=== PATIENT | male | born 1970 | race Caucasian/White ===

== ENCOUNTER 2020-07-29 19:50 | Inpatient (IN) | payer MEDICAID ==
[~2020-07-29] VITALS: Ht 182.9 cm; Wt 60.0 kg
[2020-07-29 21:11] LABS: BASOPHILS % (AUTO) 0.4 % (0-1); EOSINOPHILS # (AUTO) 0.1 X10'3 (0-0.9); EOSINOPHILS % (AUTO) 0.5 % (0-6); HEMATOCRIT 35.3 % (42.0-52.0); HEMOGLOBIN 12.3 g/dl (14.0-17.9); LYMPHOCYTES # (AUTO) 1.2 X10'3 (1.1-4.8); LYMPHOCYTES % (AUTO) 12.1 % (21-51); MEAN CORPUSCULAR HEMOGLOBIN 34.4 PG (27.0-31.0); MEAN CORPUSCULAR VOLUME 98.3 FL (78-98); MEAN PLATELET VOLUME 9.9 FL (7.4-10.4); MONOCYTES # (AUTO) 0.6 X10'3 (0-0.9); MONOCYTES % (AUTO) 6.3 % (2-12); NEUTROPHILS % (AUTO) 80.7 % (42-75); PLATELET COUNT 153 X10'3 (140-440); RED BLOOD COUNT 3.59 X10'6 (4.70-6.10); RED CELL DISTRIBUTION WIDTH 12.5 % (11.5-14.5); WHITE BLOOD COUNT 9.9 X10'3 (4.5-11.0)
[2020-07-29 21:12] LABS: CLARITY,URINE CLEAR (Clear); COLOR,URINE YELLOW (Yellow); GLUCOSE, URINE NEGATIVE (Neg); KETONES,URINE 15 mg/dl (Neg); LEUKOCYTE ESTERASE ,URINE NEGATIVE (Neg); NITRITES, URINE NEGATIVE (Neg); OCCULT BLOOD,URINE NEGATIVE (Neg); PH,URINE 5.5 (4.8-8.0); PROTEIN,URINE NEGATIVE (Neg); UROBILINOGEN,URINE 0.2 E.U/dL (0.2-1.0)
[2020-07-29 21:31] LABS: ALBUMIN 3.8 G/DL (3.4-5.0); ANION GAP 6 (8-16); BILIRUBIN,TOTAL 0.6 MG/DL (0.1-1.0); BLOOD UREA NITROGEN 12 MG/DL (7-18); CALCIUM 8.8 MG/DL (8.5-10.1); CHLORIDE 97 MMOL/L (99-107); GLUCOSE 107 MG/DL (70-104); POTASSIUM 3.7 MMOL/L (3.5-5.1); SODIUM 131 MMOL/L (135-145); TOTAL CARBON DIOXIDE 27.9 MMOL/L (24-32); TOTAL PROTEIN 6.9 G/DL (6.4-8.2); eGFR > 90 ML/MIN
[2020-07-29 21:32] LABS: ALANINE AMINOTRANSFERASE 33 U/L (12-78); ALBUMIN/GLOBULIN RATIO 1.2 (1.1-1.5); ALKALINE PHOSPHATASE 77 IU/L (46-116); ASPARTATE AMINO TRANSFERASE 28 U/L (10-37); LIPASE 137 U/L (73-393)
[2020-07-29 21:32] LABS: UA COLLECTION TYPE URINAL
[2020-07-29] MEDS ORDERED: pantoprazole 40 MG vial IV ONE (23:05)
[2020-07-29] MEDS ORDERED: normal saline 1000ML IV soln IVB ONE (23:05)
[2020-07-29] MEDS ORDERED: ondansetron/PF 4mg/2ml inj IV ONE (23:05)
[2020-07-29] MEDS ORDERED: morphine 4 MG/ML inj SYRINge IV ONE (23:05)
[2020-07-29] MEDS ORDERED: LORazepam 2 mg/ml vial IV ONE (23:05)
[2020-07-29] MEDS ORDERED: iohexol 300mg/ml 100ml inj. ONE (23:06)
--- NOTE | 2020-07-29 23:24 | NUR ---
TO CT VIA WC
[2020-07-30] VITALS (9 sets, daily range): BP systolic 92–124; BP diastolic 61–86
[2020-07-30] MEDS ORDERED: NO HOME MEDS (00:35)
[2020-07-30 00:47] LABS: BASOPHILS % (AUTO) 0.5 % (0-1); EOSINOPHILS % (AUTO) 0.5 % (0-6); HEMATOCRIT 29.8 % (42.0-52.0); HEMOGLOBIN 10.3 g/dl (14.0-17.9); MEAN CORPUSCULAR HEMOGLOBIN 34.3 PG (27.0-31.0); MEAN CORPUSCULAR HGB CONC 34.5 g/dL (33.0-36.5); MEAN CORPUSCULAR VOLUME 99.2 FL (78-98); MEAN PLATELET VOLUME 9.9 FL (7.4-10.4); MONOCYTES # (AUTO) 0.5 X10'3 (0-0.9); MONOCYTES % (AUTO) 6.9 % (2-12); NEUTROPHILS # (AUTO) 6.2 X10'3 (1.8-7.7); NEUTROPHILS % (AUTO) 79.1 % (42-75); PLATELET COUNT 136 X10'3 (140-440); RED CELL DISTRIBUTION WIDTH 12.2 % (11.5-14.5); WHITE BLOOD COUNT 7.9 X10'3 (4.5-11.0)
[2020-07-30] MEDS ORDERED: morphine 4 MG/ML inj SYRINge IV PRN (01:50)
[2020-07-30] MEDS ORDERED: potassium Cl 40MEQ/1/2NS 520ml 520 ML IV PRN ×2 (01:50)
[2020-07-30] MEDS: K, MAG and/or Phos replacement - Verify level? MC SCH ×2 (01:50→08:00)
[2020-07-30] MEDS ORDERED: potassium Cl 20 mEq SR tablet PO PRN ×2 (01:50)
[2020-07-30] MEDS ORDERED: acetaminophen 325mg tablet PO PRN ×2 (01:50)
[2020-07-30] MEDS ORDERED: magnesium hydroxide 30ml (MOM) UD suspension PO PRN (01:50)
[2020-07-30] MEDS ORDERED: ondansetron/PF 4mg/2ml inj IV PRN (01:50)
[2020-07-30] MEDS: normal saline 1000ml 1,000 ML IV SCH ×2 (02:49→15:44)
[2020-07-30 05:08] LABS: HEMATOCRIT 30.8 % (42.0-52.0); HEMOGLOBIN 10.6 g/dl (14.0-17.9); MEAN CORPUSCULAR HEMOGLOBIN 33.8 PG (27.0-31.0); MEAN CORPUSCULAR HGB CONC 34.4 g/dL (33.0-36.5); MEAN CORPUSCULAR VOLUME 98.3 FL (78-98); PLATELET COUNT 129 X10'3 (140-440); RED BLOOD COUNT 3.14 X10'6 (4.70-6.10); RED CELL DISTRIBUTION WIDTH 12.6 % (11.5-14.5); WHITE BLOOD COUNT 7.5 X10'3 (4.5-11.0)
[2020-07-30] MEDS: HYDROcodone/acetaminophen 5mg/325mg tablet PO PRN ×2 (08:11→15:54)
[2020-07-30 12:39] LABS: HEMATOCRIT 30.8 % (42.0-52.0); HEMOGLOBIN 10.5 g/dl (14.0-17.9); MEAN CORPUSCULAR HEMOGLOBIN 33.7 PG (27.0-31.0); MEAN CORPUSCULAR HGB CONC 34.1 g/dL (33.0-36.5); MEAN CORPUSCULAR VOLUME 98.6 FL (78-98); MEAN PLATELET VOLUME 10.1 FL (7.4-10.4); PLATELET COUNT 136 X10'3 (140-440); RED BLOOD COUNT 3.13 X10'6 (4.70-6.10); RED CELL DISTRIBUTION WIDTH 12.2 % (11.5-14.5)
[2020-07-30] MEDS ORDERED: nicotine 21mg patch - 24 hr TD ONE (12:45)
--- NOTE | 2020-07-30 13:13 | NUR ---
PT HAD BEEN SEEN OUTSIDE THE AMBULANCE DOORS BY [employer]IST AND STATED THAT HE "JUST WANTED TO GET SOME AIR". PT WAS TOLD THAT HE COULD NOT LEAVE AND THAT IT IS IMPORTANT THAT HE REMAIN IN BED. PT LATER ASKED IF HE COULD GO OUTSIDE. ASKED IF HE WAS GOING OUTSIDE TO SMOKE AND HE STATED "THATS PART OF IT." MD CALLED FOR ORDER FOR NICOTINE PATCH WHICH WAS PLACED ON LEFT SHOULDER. PT. STATED HE WAS UPSET BECAUSE OF HIS SITUATION. PT WAS REMINDED OF THE IMPORTANCE OF STAYING / RESTING IN BED TO ENSURE THAT HIS SPLEEN DID NOT START BLEEDING AGAIN AND TO PREVENT EMERGENT SURGERY. PT. STATED UNDERSTANDING AND AGREED TO REMAIN IN BED.
[2020-07-30] MEDS ORDERED: LORazepam 1 MG tablet PO STA (13:55)
[2020-07-30] MEDS ORDERED: pneumococcal 23-VAL P-sac vacc 25 mcg/0.5ml vial IMVAC ONE (15:35)
[2020-07-30] MEDS: HYDROcodone/acetaminophen 10/325mg tab PO PRN (20:24)
[2020-07-31] VITALS (15 sets, daily range): BP systolic 92–123; BP diastolic 59–79
[2020-07-31] MEDS: normal saline 1000ml 1,000 ML IV SCH (04:30)
[2020-07-31 06:07] LABS: BASOPHILS % (AUTO) 0.9 % (0-1); EOSINOPHILS # (AUTO) 0.1 X10'3 (0-0.9); EOSINOPHILS % (AUTO) 2.6 % (0-6); HEMATOCRIT 29.2 % (42.0-52.0); HEMOGLOBIN 10.1 g/dl (14.0-17.9); LYMPHOCYTES # (AUTO) 1.4 X10'3 (1.1-4.8); LYMPHOCYTES % (AUTO) 27.4 % (21-51); MEAN CORPUSCULAR HEMOGLOBIN 34.4 PG (27.0-31.0); MEAN CORPUSCULAR HGB CONC 34.6 g/dL (33.0-36.5); MEAN CORPUSCULAR VOLUME 99.5 FL (78-98); MONOCYTES # (AUTO) 0.4 X10'3 (0-0.9); MONOCYTES % (AUTO) 7.5 % (2-12); NEUTROPHILS # (AUTO) 3.2 X10'3 (1.8-7.7); NEUTROPHILS % (AUTO) 61.6 % (42-75); PLATELET COUNT 115 X10'3 (140-440); RED BLOOD COUNT 2.94 X10'6 (4.70-6.10); RED CELL DISTRIBUTION WIDTH 12.2 % (11.5-14.5); WHITE BLOOD COUNT 5.1 X10'3 (4.5-11.0)
[2020-07-31 06:23] LABS: ALANINE AMINOTRANSFERASE 22 U/L (12-78); ALKALINE PHOSPHATASE 61 IU/L (46-116); ANION GAP 5 (8-16); ASPARTATE AMINO TRANSFERASE 19 U/L (10-37); BILIRUBIN,TOTAL 0.6 MG/DL (0.1-1.0); BLOOD UREA NITROGEN 6 MG/DL (7-18); BUN/CREATININE RATIO 8.5 (5.4-32.0); CALCIUM 8.4 MG/DL (8.5-10.1); CHLORIDE 104 MMOL/L (99-107); CREATININE 0.71 MG/DL (0.60-1.10); GLUCOSE 93 MG/DL (70-104); POTASSIUM 4.2 MMOL/L (3.5-5.1); SODIUM 138 MMOL/L (135-145); TOTAL CARBON DIOXIDE 28.8 MMOL/L (24-32); eGFR > 90 ML/MIN
--- NOTE | 2020-07-31 06:30 | NUR ---
Patient in room ICU 2039. I have received report from Magdalena FELIX and had the opportunity to ask questions and assume patient care. Pt. sleeping comfortably, in no apparent distress.
[2020-07-31] MEDS: K, MAG and/or Phos replacement - Verify level? MC SCH (08:24)
--- NOTE | 2020-07-31 10:32 | NUR ---
Received call from Dr. Zhou: Stated he spoke with Dr. Rodas and the patient appears stable at this time. No embolization at this time. Relayed information to Dr. Ponce and informed him that if he has any questions that he could call Dr. Zhou back. Dr. Ponce approved a regular diet. Pt. denies ABD pain, n/v. No obvious signs of bleeding noted. Will continue to monitor patient closely. pt. remains bed red to ensure no bleeding.
--- NOTE | 2020-07-31 11:46 | NUR ---
Problems reprioritized. Patient report given, questions answered & plan of care reviewed with Blossom FELIX.
--- NOTE | 2020-07-31 12:08 | NUR ---
Patient in room PCU 3013. I have received report from Dia FELIX and had the opportunity to ask questions and assume patient care.
--- NOTE | 2020-07-31 12:10 | NUR ---
Patient transferred to room 3013B in stable condition.
[2020-07-31] MEDS: HYDROcodone/acetaminophen 10/325mg tab PO PRN ×2 (13:50→19:57)
--- NOTE | 2020-07-31 14:39 | NUR ---
RECEIVED REPORT AND ASSUMED CARE FOR BREAK RELIEF. Ricky ROMERO PICC RN
--- NOTE | 2020-07-31 18:33 | NUR ---
Problems reprioritized. Patient report given, questions answered & plan of care reviewed with Scarlett FELIX.
--- NOTE | 2020-07-31 18:33 | NUR ---
Patient in room U 3013B. I have received report from ELVIRA Cerrato and had the opportunity to ask questions and assume patient care.
[2020-07-31] MEDS ORDERED: Melatonin 3mg tablet PO ONE (22:40)
[2020-08-01 06:00] VITALS: BP 114/72
--- NOTE | 2020-08-01 06:15 | NUR ---
received report from lindsey santoro
--- NOTE | 2020-08-01 06:33 | NUR ---
Problems reprioritized. Patient report given, questions answered & plan of care reviewed with ELVIRA Lincoln.
[2020-08-01 07:59] LABS: BASOPHILS % (AUTO) 0.9 % (0-1); EOSINOPHILS # (AUTO) 0.2 X10'3 (0-0.9); EOSINOPHILS % (AUTO) 3.4 % (0-6); HEMATOCRIT 29.1 % (42.0-52.0); HEMOGLOBIN 10.1 g/dl (14.0-17.9); LYMPHOCYTES % (AUTO) 22.3 % (21-51); MEAN CORPUSCULAR HGB CONC 34.6 g/dL (33.0-36.5); MEAN CORPUSCULAR VOLUME 98.2 FL (78-98); MEAN PLATELET VOLUME 9.5 FL (7.4-10.4); MONOCYTES # (AUTO) 0.3 X10'3 (0-0.9); MONOCYTES % (AUTO) 6.6 % (2-12); NEUTROPHILS # (AUTO) 2.9 X10'3 (1.8-7.7); NEUTROPHILS % (AUTO) 66.8 % (42-75); PLATELET COUNT 120 X10'3 (140-440); RED BLOOD COUNT 2.97 X10'6 (4.70-6.10); RED CELL DISTRIBUTION WIDTH 12.2 % (11.5-14.5); WHITE BLOOD COUNT 4.4 X10'3 (4.5-11.0)
[2020-08-01] MEDS: K, MAG and/or Phos replacement - Verify level? MC SCH (08:00)
[2020-08-01] MEDS: HYDROcodone/acetaminophen 10/325mg tab PO PRN ×2 (08:01→12:32)
[2020-08-01 08:17] LABS: ALANINE AMINOTRANSFERASE 21 U/L (12-78); ALBUMIN 3.1 G/DL (3.4-5.0); ALBUMIN/GLOBULIN RATIO 0.9 (1.1-1.5); ALKALINE PHOSPHATASE 64 IU/L (46-116); ANION GAP 4 (8-16); ASPARTATE AMINO TRANSFERASE 17 U/L (10-37); BILIRUBIN,TOTAL 0.5 MG/DL (0.1-1.0); BLOOD UREA NITROGEN 8 MG/DL (7-18); BUN/CREATININE RATIO 12.5 (5.4-32.0); CALCIUM 9.7 MG/DL (8.5-10.1); CHLORIDE 104 MMOL/L (99-107); CREATININE 0.64 MG/DL (0.60-1.10); GLUCOSE 96 MG/DL (70-104); MAGNESIUM 2.5 MG/DL (1.5-2.4); PHOSPHORUS 3.4 MG/DL (2.3-4.5); SODIUM 137 MMOL/L (135-145); TOTAL CARBON DIOXIDE 28.8 MMOL/L (24-32); TOTAL PROTEIN 6.5 G/DL (6.4-8.2); eGFR > 90 ML/MIN
[2020-08-01 11:00] VITALS: BP 121/79
--- NOTE | 2020-08-01 12:30 | NUR ---
dr. driscoll at bedside and said since pt h and h is stable intensive doc can d/c, said that pt can only walk and be on bedrest, no lifting and to schedule an appointment w/dr. driscoll in about 3 weeks
[2020-08-01 15:00] VITALS: BP 124/64
--- NOTE | 2020-08-01 15:54 | NUR ---
PT D/C WITH INSTRUCTIONS, UNDERSTANDING OF INSTRUCTIONS AND W/ALL BELONGINGS INCLUDING A WORK WAIVER STATING THAT PT IS ABLE TO RETURN TO WORK ON FRIDAY WITH LIGHT DUTY, WALKING TO PRIVATE VEHICLE TO GO HOME AND F/U W/PCP
[2020-08-01] MEDS ORDERED: Melatonin 3mg tablet PO SCH (21:00)
== END 2020-08-01 15:55 | disposition home or self-care (01) | DRG 663 ==
LOC: ER 19:51 → ED HOLD 07-30 01:46 → ICU 2S 07-30 14:30 → PCU 3S 07-31 11:56
PROVIDERS: ADMIT Internal Medicine Critical Care Medicine; ATTEND Internal Medicine Critical Care Medicine
PROC: BW211ZZ Computerized Tomography (CT Scan) of Abdomen and Pelvis using Low Osmolar Contrast (ICD-10-PCS; principal; 2020-07-30)
DX: S36.039A Unspecified laceration of spleen, initial encounter (principal); R58 Hemorrhage, not elsewhere classified; N28.9 Disorder of kidney and ureter, unspecified; E87.1 Hypo-osmolality and hyponatremia; F12.90 Cannabis use, unspecified, uncomplicated; D64.9 Anemia, unspecified; F17.200 Nicotine dependence, unspecified, uncomplicated; Z28.21 Immunization not carried out because of patient refusal; Y93.89 Activity, other specified; Y92.89 Other specified places as the place of occurrence of the external cause; Y99.8 Other external cause status
CPT/HCPCS: 36415; 74177; 80053; 81003; 83690; 83735; 84100; 85025; 85027; 86885; 86900; 86901; 87081; 96374; 96375; 99291; C9113; G0378; J2060; J2270; J2405; J7030; Q9967

== ENCOUNTER 2020-08-01 20:30 | Inpatient (IN) | payer MEDICAID ==
[~2020-08-01] VITALS: Ht 182.9 cm; Wt 70.4 kg
[~2020-08-01 20:30] MED LIST: NO HOME MEDS
[2020-08-01] MEDS ORDERED: iohexol 300mg/ml 100ml inj. ONE ×2 (21:12→23:17)
--- NOTE | 2020-08-01 21:14 | NUR ---
1 UNIT INFUSED O NEGATIVE BLOOD VIA RAPID TRANSFUSER PER DR ROACH
[2020-08-01 21:17] LABS: BASOPHILS # (AUTO) 0.1 X10'3 (0-0.2); BASOPHILS % (AUTO) 0.4 % (0-1); EOSINOPHILS # (AUTO) 0.1 X10'3 (0-0.9); EOSINOPHILS % (AUTO) 0.4 % (0-6); HEMATOCRIT 27.6 % (42.0-52.0); HEMOGLOBIN 9.3 g/dl (14.0-17.9); LYMPHOCYTES # (AUTO) 1.5 X10'3 (1.1-4.8); LYMPHOCYTES % (AUTO) 9.6 % (21-51); MEAN CORPUSCULAR HEMOGLOBIN 33.3 PG (27.0-31.0); MEAN CORPUSCULAR HGB CONC 33.7 g/dL (33.0-36.5); MEAN CORPUSCULAR VOLUME 98.8 FL (78-98); MEAN PLATELET VOLUME 9.9 FL (7.4-10.4); MONOCYTES # (AUTO) 0.9 X10'3 (0-0.9); MONOCYTES % (AUTO) 5.3 % (2-12); NEUTROPHILS # (AUTO) 13.7 X10'3 (1.8-7.7); NEUTROPHILS % (AUTO) 84.3 % (42-75); PLATELET COUNT 176 X10'3 (140-440); RED BLOOD COUNT 2.79 X10'6 (4.70-6.10); RED CELL DISTRIBUTION WIDTH 12.5 % (11.5-14.5); WHITE BLOOD COUNT 16.2 X10'3 (4.5-11.0)
[2020-08-01 21:28] LABS: ALANINE AMINOTRANSFERASE 22 U/L (12-78); ALBUMIN 3.4 G/DL (3.4-5.0); ALKALINE PHOSPHATASE 69 IU/L (46-116); ANION GAP 6 (8-16); ASPARTATE AMINO TRANSFERASE 18 U/L (10-37); BILIRUBIN,TOTAL 0.5 MG/DL (0.1-1.0); BLOOD UREA NITROGEN 14 MG/DL (7-18); CALCIUM 8.9 MG/DL (8.5-10.1); CHLORIDE 100 MMOL/L (99-107); CREATININE 1.08 MG/DL (0.60-1.10); GLUCOSE 241 MG/DL (70-104); POTASSIUM 3.8 MMOL/L (3.5-5.1); SODIUM 134 MMOL/L (135-145); TOTAL CARBON DIOXIDE 27.6 MMOL/L (24-32); TOTAL PROTEIN 6.8 G/DL (6.4-8.2); eGFR 73 ML/MIN
[2020-08-01] MEDS ORDERED: normal saline 1000ml 1,000 ML IV ONE (21:55)
[2020-08-01] MEDS ORDERED: fentaNYL/PF 50MCG/1 ML 2ML syringe IV ONE (22:00)
[2020-08-01] MEDS ORDERED: piperacillin/tazo 4.5gm/100ml 100 ML IV ONE (22:15)
[2020-08-01] MEDS ORDERED: magnesium hydroxide 30ml (MOM) UD suspension PO PRN (22:45)
[2020-08-01] MEDS ORDERED: normal saline 1000ml 1,000 ML IV SCH (22:45)
[2020-08-01] MEDS ORDERED: acetaminophen 325mg tablet PO PRN (22:45)
[2020-08-01] MEDS ORDERED: potassium Cl 40MEQ/1/2NS 520ml 520 ML IV PRN ×2 (22:45)
[2020-08-01] MEDS ORDERED: potassium Cl 20 mEq SR tablet PO PRN ×2 (22:45)
[2020-08-01] MEDS ORDERED: acetaminophen 650mg rectal suppository RC PRN (22:45)
[2020-08-01] MEDS ORDERED: LIDOcaine 1%/PF 5ML 10 MG/ML VIAL ONE (23:16)
[2020-08-01] MEDS: ondansetron/PF 4mg/2ml inj IV PRN (23:17)
[2020-08-01] MEDS ORDERED: fentaNYL/PF 50MCG/1 ML 2ML syringe ONE (23:17)
[2020-08-01] MEDS ORDERED: heparin 1,000 UNITS/NS 500ml 500 ML ONE (23:17)
[2020-08-01] MEDS ORDERED: midazolam 2 mg/2 ml injection ONE (23:17)
[2020-08-01] MEDS: morphine 4 MG/ML inj SYRINge IV PRN (23:17)
[2020-08-02] VITALS (32 sets, daily range): BP systolic 113–146; BP diastolic 55–84
[2020-08-02] MEDS ORDERED: midazolam 2 mg/2 ml injection ONE ×2 (00:13→00:51)
[2020-08-02] MEDS ORDERED: fentaNYL/PF 50MCG/1 ML 2ML syringe ONE ×2 (00:13→00:51)
--- NOTE | 2020-08-02 02:20 | NUR ---
pt admitted to ICU from IR. pt sleepy but oriented.
[2020-08-02] MEDS: ondansetron/PF 4mg/2ml inj IV PRN (03:49)
[2020-08-02] MEDS: morphine 2 MG/ML inj. syringe IV PRN ×3 (03:49→21:45)
[2020-08-02 03:56] LABS: BASOPHILS % (AUTO) 0.4 % (0-1); EOSINOPHILS % (AUTO) 0.1 % (0-6); HEMATOCRIT 23.3 % (42.0-52.0); HEMOGLOBIN 7.9 g/dl (14.0-17.9); LYMPHOCYTES # (AUTO) 1.1 X10'3 (1.1-4.8); LYMPHOCYTES % (AUTO) 9.2 % (21-51); MEAN CORPUSCULAR HEMOGLOBIN 32.9 PG (27.0-31.0); MEAN CORPUSCULAR HGB CONC 33.9 g/dL (33.0-36.5); MEAN PLATELET VOLUME 10.3 FL (7.4-10.4); MONOCYTES # (AUTO) 0.8 X10'3 (0-0.9); MONOCYTES % (AUTO) 6.4 % (2-12); NEUTROPHILS % (AUTO) 83.9 % (42-75); PLATELET COUNT 154 X10'3 (140-440); RED CELL DISTRIBUTION WIDTH 13.1 % (11.5-14.5)
[2020-08-02 04:01] LABS: ALANINE AMINOTRANSFERASE 20 U/L (12-78); ALBUMIN 2.9 G/DL (3.4-5.0); ALKALINE PHOSPHATASE 56 IU/L (46-116); ANION GAP 7 (8-16); ASPARTATE AMINO TRANSFERASE 16 U/L (10-37); BILIRUBIN,TOTAL 0.6 MG/DL (0.1-1.0); BLOOD UREA NITROGEN 14 MG/DL (7-18); BUN/CREATININE RATIO 19.7 (5.4-32.0); CALCIUM 8.3 MG/DL (8.5-10.1); CHLORIDE 104 MMOL/L (99-107); CREATININE 0.71 MG/DL (0.60-1.10); GLUCOSE 164 MG/DL (70-104); PHOSPHORUS 4.5 MG/DL (2.3-4.5); POTASSIUM 4.7 MMOL/L (3.5-5.1); SODIUM 136 MMOL/L (135-145); TOTAL CARBON DIOXIDE 24.9 MMOL/L (24-32); TOTAL PROTEIN 5.9 G/DL (6.4-8.2); eGFR > 90 ML/MIN
[2020-08-02] MEDS: pantoprazole 40mg Tablet.DR PO SCH (07:35)
[2020-08-02] MEDS: morphine 4 MG/ML inj SYRINge IV PRN (07:35)
[2020-08-02] MEDS: K, MAG and/or Phos replacement - Verify level? MC SCH (08:00)
[2020-08-02] MEDS ORDERED: nicotine 21mg patch - 24 hr TD ONE (11:00)
--- NOTE | 2020-08-02 13:45 | NUR ---
Per Dr. Zhou, orders for serial H&H q6h after post-transfusion H&H
--- NOTE | 2020-08-02 15:37 | NUR ---
Assessed pts right groin r/t femoral sheath. Tender area and slight edema seen. No signs of ecchymosis anteriorly and posteriorly.
[2020-08-02] MEDS: acetaminophen 325mg tablet PO PRN ×2 (16:05→23:50)
[2020-08-02 16:22] LABS: HEMATOCRIT 22.1 % (42.0-52.0); HEMOGLOBIN 7.9 g/dl (14.0-17.9); MEAN CORPUSCULAR HEMOGLOBIN 34.2 PG (27.0-31.0); MEAN CORPUSCULAR HGB CONC 35.7 g/dL (33.0-36.5); MEAN CORPUSCULAR VOLUME 95.7 FL (78-98); MEAN PLATELET VOLUME 9.7 FL (7.4-10.4); PLATELET COUNT 141 X10'3 (140-440); RED BLOOD COUNT 2.31 X10'6 (4.70-6.10); RED CELL DISTRIBUTION WIDTH 13.3 % (11.5-14.5); WHITE BLOOD COUNT 9.6 X10'3 (4.5-11.0)
--- NOTE | 2020-08-02 18:01 | NUR ---
Pt will have received 2 PRBC by the end of day shift. Post 1st transfusion, hbg remained 7.9. CBC will be drawn at 2200 to recheck hgb/hct levels
--- NOTE | 2020-08-02 18:03 | NUR ---
Problems reprioritized. Patient report given, questions answered & plan of care reviewed with ELVIRA Salinas.
[2020-08-02] MEDS: normal saline 1000ml 1,000 ML IV SCH (20:30)
[2020-08-02 22:04] LABS: BASOPHILS # (AUTO) 0.1 X10'3 (0-0.2); BASOPHILS % (AUTO) 0.5 % (0-1); EOSINOPHILS # (AUTO) 0.1 X10'3 (0-0.9); HEMATOCRIT 25.1 % (42.0-52.0); HEMOGLOBIN 8.7 g/dl (14.0-17.9); LYMPHOCYTES % (AUTO) 19.6 % (21-51); MEAN CORPUSCULAR HEMOGLOBIN 32.5 PG (27.0-31.0); MEAN CORPUSCULAR HGB CONC 34.9 g/dL (33.0-36.5); MEAN CORPUSCULAR VOLUME 93.1 FL (78-98); MEAN PLATELET VOLUME 9.4 FL (7.4-10.4); MONOCYTES # (AUTO) 0.9 X10'3 (0-0.9); MONOCYTES % (AUTO) 9.2 % (2-12); NEUTROPHILS # (AUTO) 6.9 X10'3 (1.8-7.7); NEUTROPHILS % (AUTO) 69.7 % (42-75); PLATELET COUNT 149 X10'3 (140-440); RED BLOOD COUNT 2.69 X10'6 (4.70-6.10); RED CELL DISTRIBUTION WIDTH 14.7 % (11.5-14.5)
[2020-08-03] VITALS (23 sets, daily range): BP systolic 107–132; BP diastolic 65–87
[2020-08-03] MEDS: morphine 4 MG/ML inj SYRINge IV PRN (01:22)
[2020-08-03 03:57] LABS: BASOPHILS % (AUTO) 0.5 % (0-1); EOSINOPHILS # (AUTO) 0.1 X10'3 (0-0.9); EOSINOPHILS % (AUTO) 1.4 % (0-6); HEMATOCRIT 24.6 % (42.0-52.0); HEMOGLOBIN 8.6 g/dl (14.0-17.9); LYMPHOCYTES # (AUTO) 1.8 X10'3 (1.1-4.8); LYMPHOCYTES % (AUTO) 18.4 % (21-51); MEAN CORPUSCULAR HEMOGLOBIN 32.7 PG (27.0-31.0); MEAN CORPUSCULAR VOLUME 93.2 FL (78-98); MEAN PLATELET VOLUME 8.8 FL (7.4-10.4); MONOCYTES # (AUTO) 0.8 X10'3 (0-0.9); MONOCYTES % (AUTO) 8.7 % (2-12); NEUTROPHILS # (AUTO) 6.9 X10'3 (1.8-7.7); PLATELET COUNT 153 X10'3 (140-440); RED BLOOD COUNT 2.64 X10'6 (4.70-6.10); RED CELL DISTRIBUTION WIDTH 15.2 % (11.5-14.5); WHITE BLOOD COUNT 9.7 X10'3 (4.5-11.0)
[2020-08-03 04:17] LABS: ALANINE AMINOTRANSFERASE 16 U/L (12-78); ALBUMIN 2.8 G/DL (3.4-5.0); ALBUMIN/GLOBULIN RATIO 0.9 (1.1-1.5); ALKALINE PHOSPHATASE 50 IU/L (46-116); ANION GAP 6 (8-16); ASPARTATE AMINO TRANSFERASE 19 U/L (10-37); BILIRUBIN,TOTAL 1.1 MG/DL (0.1-1.0); BLOOD UREA NITROGEN 9 MG/DL (7-18); BUN/CREATININE RATIO 15.8 (5.4-32.0); CALCIUM 8.3 MG/DL (8.5-10.1); CHLORIDE 103 MMOL/L (99-107); CREATININE 0.57 MG/DL (0.60-1.10); GLUCOSE 98 MG/DL (70-104); MAGNESIUM 1.9 MG/DL (1.5-2.4); PHOSPHORUS 2.6 MG/DL (2.3-4.5); POTASSIUM 3.9 MMOL/L (3.5-5.1); SODIUM 136 MMOL/L (135-145); TOTAL CARBON DIOXIDE 26.8 MMOL/L (24-32); TOTAL PROTEIN 5.8 G/DL (6.4-8.2); eGFR > 90 ML/MIN
[2020-08-03] MEDS: morphine 2 MG/ML inj. syringe IV PRN ×2 (05:28→07:23)
[2020-08-03] MEDS: pantoprazole 40mg Tablet.DR PO SCH (07:23)
[2020-08-03] MEDS: nicotine 21mg patch - 24 hr TD SCH (07:24)
[2020-08-03] MEDS: K, MAG and/or Phos replacement - Verify level? MC SCH (08:14)
[2020-08-03 10:17] LABS: BASOPHILS # (AUTO) 0.1 X10'3 (0-0.2); BASOPHILS % (AUTO) 0.7 % (0-1); EOSINOPHILS # (AUTO) 0.2 X10'3 (0-0.9); EOSINOPHILS % (AUTO) 1.6 % (0-6); HEMATOCRIT 25.4 % (42.0-52.0); HEMOGLOBIN 8.8 g/dl (14.0-17.9); LYMPHOCYTES # (AUTO) 1.7 X10'3 (1.1-4.8); LYMPHOCYTES % (AUTO) 15.8 % (21-51); MEAN CORPUSCULAR HEMOGLOBIN 32.3 PG (27.0-31.0); MEAN CORPUSCULAR HGB CONC 34.6 g/dL (33.0-36.5); MEAN CORPUSCULAR VOLUME 93.3 FL (78-98); MEAN PLATELET VOLUME 9.4 FL (7.4-10.4); MONOCYTES # (AUTO) 0.9 X10'3 (0-0.9); MONOCYTES % (AUTO) 8.1 % (2-12); NEUTROPHILS # (AUTO) 7.9 X10'3 (1.8-7.7); NEUTROPHILS % (AUTO) 73.8 % (42-75); PLATELET COUNT 171 X10'3 (140-440); RED BLOOD COUNT 2.73 X10'6 (4.70-6.10); WHITE BLOOD COUNT 10.7 X10'3 (4.5-11.0)
[2020-08-03] MEDS: HYDROcodone/acetaminophen 10/325mg tab PO PRN ×2 (11:36→21:07)
[2020-08-04] VITALS (24 sets, daily range): BP systolic 97–121; BP diastolic 53–75
[2020-08-04] MEDS: HYDROcodone/acetaminophen 10/325mg tab PO PRN ×4 (01:02→21:19)
--- NOTE | 2020-08-04 06:24 | NUR ---
Problems reprioritized. Patient report given, questions answered & plan of care reviewed with ELVIRA Mccain.
[2020-08-04 06:35] LABS: BASOPHILS # (AUTO) 0.1 X10'3 (0-0.2); BASOPHILS % (AUTO) 0.7 % (0-1); EOSINOPHILS # (AUTO) 0.2 X10'3 (0-0.9); EOSINOPHILS % (AUTO) 2.5 % (0-6); HEMATOCRIT 27.6 % (42.0-52.0); HEMOGLOBIN 9.6 g/dl (14.0-17.9); LYMPHOCYTES # (AUTO) 2.1 X10'3 (1.1-4.8); LYMPHOCYTES % (AUTO) 21.5 % (21-51); MEAN CORPUSCULAR HGB CONC 34.9 g/dL (33.0-36.5); MEAN CORPUSCULAR VOLUME 94.6 FL (78-98); MEAN PLATELET VOLUME 9.3 FL (7.4-10.4); MONOCYTES % (AUTO) 10.4 % (2-12); NEUTROPHILS # (AUTO) 6.3 X10'3 (1.8-7.7); NEUTROPHILS % (AUTO) 64.9 % (42-75); PLATELET COUNT 205 X10'3 (140-440); RED BLOOD COUNT 2.92 X10'6 (4.70-6.10); RED CELL DISTRIBUTION WIDTH 14.6 % (11.5-14.5); WHITE BLOOD COUNT 9.8 X10'3 (4.5-11.0)
[2020-08-04 07:17] LABS: ALANINE AMINOTRANSFERASE 15 U/L (12-78); ALBUMIN 3.1 G/DL (3.4-5.0); ALBUMIN/GLOBULIN RATIO 0.9 (1.1-1.5); ALKALINE PHOSPHATASE 58 IU/L (46-116); ANION GAP 8 (8-16); ASPARTATE AMINO TRANSFERASE 19 U/L (10-37); BILIRUBIN,TOTAL 0.8 MG/DL (0.1-1.0); BLOOD UREA NITROGEN 9 MG/DL (7-18); BUN/CREATININE RATIO 13.6 (5.4-32.0); CHLORIDE 100 MMOL/L (99-107); CREATININE 0.66 MG/DL (0.60-1.10); GLUCOSE 88 MG/DL (70-104); MAGNESIUM 2.2 MG/DL (1.5-2.4); PHOSPHORUS 3.7 MG/DL (2.3-4.5); POTASSIUM 4.2 MMOL/L (3.5-5.1); SODIUM 137 MMOL/L (135-145); TOTAL CARBON DIOXIDE 28.6 MMOL/L (24-32); TOTAL PROTEIN 6.6 G/DL (6.4-8.2); eGFR > 90 ML/MIN
[2020-08-04] MEDS: pantoprazole 40mg Tablet.DR PO SCH (07:30)
[2020-08-04] MEDS: normal saline 1000ml 1,000 ML IV SCH ×2 (07:33→07:35)
[2020-08-04] MEDS: K, MAG and/or Phos replacement - Verify level? MC SCH (07:34)
[2020-08-04] MEDS: nicotine 21mg patch - 24 hr TD SCH (08:52)
[2020-08-04] MEDS ORDERED: iohexol 300mg/ml 100ml inj. ONE (13:37)
[2020-08-05] VITALS (9 sets, daily range): BP systolic 97–117; BP diastolic 57–71
[2020-08-05] MEDS: HYDROcodone/acetaminophen 10/325mg tab PO PRN ×4 (01:09→21:09)
--- NOTE | 2020-08-05 04:30 | NUR ---
Problems reprioritized. Patient report given, questions answered & plan of care reviewed with ELVIRA Torres Med/Surg.
--- NOTE | 2020-08-05 05:20 | NUR ---
Reviewed Monica Ochoa assessment and I agree with her assessment. will continue to monitor.
[2020-08-05 06:30] LABS: BASOPHILS % (AUTO) 0.5 % (0-1); EOSINOPHILS # (AUTO) 0.2 X10'3 (0-0.9); EOSINOPHILS % (AUTO) 2.6 % (0-6); HEMATOCRIT 27.5 % (42.0-52.0); HEMOGLOBIN 9.7 g/dl (14.0-17.9); LYMPHOCYTES # (AUTO) 1.6 X10'3 (1.1-4.8); LYMPHOCYTES % (AUTO) 18.2 % (21-51); MEAN CORPUSCULAR HEMOGLOBIN 33.5 PG (27.0-31.0); MEAN CORPUSCULAR HGB CONC 35.1 g/dL (33.0-36.5); MEAN CORPUSCULAR VOLUME 95.4 FL (78-98); MEAN PLATELET VOLUME 8.7 FL (7.4-10.4); MONOCYTES # (AUTO) 0.9 X10'3 (0-0.9); MONOCYTES % (AUTO) 10.3 % (2-12); NEUTROPHILS # (AUTO) 6.2 X10'3 (1.8-7.7); NEUTROPHILS % (AUTO) 68.4 % (42-75); PLATELET COUNT 252 X10'3 (140-440); RED BLOOD COUNT 2.89 X10'6 (4.70-6.10); RED CELL DISTRIBUTION WIDTH 14.2 % (11.5-14.5)
--- NOTE | 2020-08-05 06:35 | NUR ---
Problems reprioritized. Patient report given, questions answered & plan of care reviewed with Leeanna FELIX.
--- NOTE | 2020-08-05 06:38 | NUR ---
Patient in room FADI 359. I have received report from ANYI FELIX and had the opportunity to ask questions and assume patient care.
[2020-08-05 06:42] LABS: ALANINE AMINOTRANSFERASE 13 U/L (12-78); ALBUMIN/GLOBULIN RATIO 0.9 (1.1-1.5); ALKALINE PHOSPHATASE 57 IU/L (46-116); ANION GAP 8 (8-16); ASPARTATE AMINO TRANSFERASE 19 U/L (10-37); BILIRUBIN,TOTAL 0.8 MG/DL (0.1-1.0); BLOOD UREA NITROGEN 12 MG/DL (7-18); CALCIUM 8.9 MG/DL (8.5-10.1); CHLORIDE 100 MMOL/L (99-107); GLUCOSE 90 MG/DL (70-104); MAGNESIUM 2.2 MG/DL (1.5-2.4); POTASSIUM 3.9 MMOL/L (3.5-5.1); SODIUM 135 MMOL/L (135-145); TOTAL CARBON DIOXIDE 27.4 MMOL/L (24-32); TOTAL PROTEIN 6.5 G/DL (6.4-8.2); eGFR > 90 ML/MIN
[2020-08-05] MEDS: K, MAG and/or Phos replacement - Verify level? MC SCH (08:00)
[2020-08-05] MEDS: pantoprazole 40mg Tablet.DR PO SCH (09:05)
[2020-08-05] MEDS: nicotine 21mg patch - 24 hr TD SCH (09:05)
--- NOTE | 2020-08-05 18:53 | NUR ---
Patient in room FADI 345. I have received report from Leeanna FELIX and had the opportunity to ask questions and assume patient care.
[2020-08-06 00:01] VITALS: BP 104/63
--- NOTE | 2020-08-06 06:16 | NUR ---
Problems reprioritized. Patient report given, questions answered & plan of care reviewed with Cat FELIX.
--- NOTE | 2020-08-06 06:25 | NUR ---
Patient in room [facility]ADI 345. I have received report from ELVIRA Reyes and had the opportunity to ask questions and assume patient care.
[2020-08-06] MEDS: K, MAG and/or Phos replacement - Verify level? MC SCH (07:00)
[2020-08-06 07:10] LABS: ALANINE AMINOTRANSFERASE 15 U/L (12-78); ALBUMIN 3.3 G/DL (3.4-5.0); ALBUMIN/GLOBULIN RATIO 0.9 (1.1-1.5); ALKALINE PHOSPHATASE 57 IU/L (46-116); ANION GAP 6 (8-16); ASPARTATE AMINO TRANSFERASE 23 U/L (10-37); BILIRUBIN,TOTAL 1.1 MG/DL (0.1-1.0); BLOOD UREA NITROGEN 11 MG/DL (7-18); BUN/CREATININE RATIO 15.9 (5.4-32.0); CALCIUM 9.1 MG/DL (8.5-10.1); CHLORIDE 101 MMOL/L (99-107); CREATININE 0.69 MG/DL (0.60-1.10); GLUCOSE 94 MG/DL (70-104); MAGNESIUM 2.4 MG/DL (1.5-2.4); PHOSPHORUS 3.8 MG/DL (2.3-4.5); POTASSIUM 4.3 MMOL/L (3.5-5.1); SODIUM 138 MMOL/L (135-145); TOTAL CARBON DIOXIDE 30.6 MMOL/L (24-32); TOTAL PROTEIN 6.9 G/DL (6.4-8.2); eGFR > 90 ML/MIN
[2020-08-06 07:15] LABS: BASOPHILS % (AUTO) 0.6 % (0-1); EOSINOPHILS # (AUTO) 0.2 X10'3 (0-0.9); HEMOGLOBIN 9.6 g/dl (14.0-17.9); LYMPHOCYTES # (AUTO) 1.4 X10'3 (1.1-4.8); LYMPHOCYTES % (AUTO) 18.2 % (21-51); MEAN CORPUSCULAR HEMOGLOBIN 32.9 PG (27.0-31.0); MEAN CORPUSCULAR HGB CONC 34.3 g/dL (33.0-36.5); MEAN CORPUSCULAR VOLUME 95.9 FL (78-98); MEAN PLATELET VOLUME 8.4 FL (7.4-10.4); MONOCYTES # (AUTO) 0.8 X10'3 (0-0.9); MONOCYTES % (AUTO) 10.2 % (2-12); NEUTROPHILS # (AUTO) 5.3 X10'3 (1.8-7.7); PLATELET COUNT 337 X10'3 (140-440); RED BLOOD COUNT 2.92 X10'6 (4.70-6.10); RED CELL DISTRIBUTION WIDTH 14.1 % (11.5-14.5); WHITE BLOOD COUNT 7.8 X10'3 (4.5-11.0)
[2020-08-06 07:30] VITALS: BP 114/70
[2020-08-06] MEDS: pantoprazole 40mg Tablet.DR PO SCH (08:44)
[2020-08-06] MEDS: nicotine 21mg patch - 24 hr TD SCH (08:45)
[2020-08-06] MEDS: HYDROcodone/acetaminophen 10/325mg tab PO PRN ×3 (10:20→21:09)
[2020-08-06 11:00] VITALS: BP 110/71
--- NOTE | 2020-08-06 14:33 | NUR ---
Initial: Pt admit DX grade 5 splenic fracture s/p splenic artery embolization per EMR. PO improving to 75-100% avg regular diet past 2.5 days meeting needs. LBM 08/06. No nutrition concerns at this time. Will continue to monitor. Rec: 1. continue regular diet 2. routine bowel care 3. wt per rx Addendum: 08/06/20 at [address] Amended: Links added.
--- NOTE | 2020-08-06 18:24 | NUR ---
Problems reprioritized. Patient report given, questions answered & plan of care reviewed with ELVIRA Vanessa.
--- NOTE | 2020-08-06 18:45 | NUR ---
Patient in room FADI 345. I have received report from Cat FELIX and had the opportunity to ask questions and assume patient care.
[2020-08-06 20:09] VITALS: BP 106/64
[2020-08-06] MEDS ORDERED: Melatonin 3mg tablet PO SCH (21:00)
[2020-08-07] MEDS: HYDROcodone/acetaminophen 10/325mg tab PO PRN ×3 (02:22→14:10)
--- NOTE | 2020-08-07 06:22 | NUR ---
Problems reprioritized. Patient report given, questions answered & plan of care reviewed with Cat FELIX.
[2020-08-07 06:41] LABS: BASOPHILS # (AUTO) 0.1 X10'3 (0-0.2); BASOPHILS % (AUTO) 0.6 % (0-1); EOSINOPHILS # (AUTO) 0.3 X10'3 (0-0.9); EOSINOPHILS % (AUTO) 3.4 % (0-6); HEMATOCRIT 27.9 % (42.0-52.0); HEMOGLOBIN 9.5 g/dl (14.0-17.9); LYMPHOCYTES # (AUTO) 1.5 X10'3 (1.1-4.8); LYMPHOCYTES % (AUTO) 18.1 % (21-51); MEAN CORPUSCULAR HEMOGLOBIN 32.7 PG (27.0-31.0); MEAN CORPUSCULAR VOLUME 96.3 FL (78-98); MEAN PLATELET VOLUME 8.1 FL (7.4-10.4); MONOCYTES # (AUTO) 0.9 X10'3 (0-0.9); MONOCYTES % (AUTO) 10.9 % (2-12); NEUTROPHILS # (AUTO) 5.6 X10'3 (1.8-7.7); PLATELET COUNT 375 X10'3 (140-440); RED BLOOD COUNT 2.89 X10'6 (4.70-6.10); RED CELL DISTRIBUTION WIDTH 13.9 % (11.5-14.5); WHITE BLOOD COUNT 8.3 X10'3 (4.5-11.0)
[2020-08-07] MEDS: K, MAG and/or Phos replacement - Verify level? MC SCH (07:06)
[2020-08-07 07:20] LABS: ALANINE AMINOTRANSFERASE 15 U/L (12-78); ALBUMIN 3.1 G/DL (3.4-5.0); ALBUMIN/GLOBULIN RATIO 0.8 (1.1-1.5); ALKALINE PHOSPHATASE 57 IU/L (46-116); ANION GAP 4 (8-16); ASPARTATE AMINO TRANSFERASE 26 U/L (10-37); BILIRUBIN,TOTAL 0.9 MG/DL (0.1-1.0); BLOOD UREA NITROGEN 11 MG/DL (7-18); BUN/CREATININE RATIO 15.9 (5.4-32.0); CHLORIDE 101 MMOL/L (99-107); CREATININE 0.69 MG/DL (0.60-1.10); GLUCOSE 89 MG/DL (70-104); MAGNESIUM 2.4 MG/DL (1.5-2.4); POTASSIUM 4.4 MMOL/L (3.5-5.1); SODIUM 135 MMOL/L (135-145); TOTAL CARBON DIOXIDE 29.7 MMOL/L (24-32); TOTAL PROTEIN 6.8 G/DL (6.4-8.2); eGFR > 90 ML/MIN
[2020-08-07] MEDS: nicotine 21mg patch - 24 hr TD SCH (07:42)
[2020-08-07] MEDS: pantoprazole 40mg Tablet.DR PO SCH (07:42)
[2020-08-07 07:55] VITALS: BP 127/76
[2020-08-07 11:00] VITALS: BP 111/71
--- NOTE | 2020-08-07 15:45 | NUR ---
Patient discharged home and taken from unit via ambulation with primary nurse. Patient's person discharge plan is to go home to his brother's house to get his belongings and then head [facility]. Both patient PIVs removed with cannula intact. Patient alert, oriented and in no apparent distress at time of discharge. Patient discharge instructions discussed with patient and patient was given time for questions and answers. Patient was very rushed and not really wanting to listen to instructions. Patient was encouraged to take it easy for a couple of weeks and not to lift anything greater than ten pounds. Patient stated an understanding of this.
== END 2020-08-07 15:45 | disposition home or self-care (01) | DRG 950 ==
LOC: ER 20:31 → ED HOLD 22:45 → ICU 2S 08-02 01:53 → SUR 3N 08-05 04:53
PROVIDERS: ADMIT Internal Medicine Critical Care Medicine; ATTEND Internal Medicine Critical Care Medicine
PROC: 30233N1 Transfusion of Nonautologous Red Blood Cells into Peripheral Vein, Percutaneous Approach (ICD-10-PCS; principal; 2020-08-01)
PROC: BW211ZZ Computerized Tomography (CT Scan) of Abdomen and Pelvis using Low Osmolar Contrast (ICD-10-PCS; 2020-08-01)
PROC: B4131ZZ Fluoroscopy of Splenic Arteries using Low Osmolar Contrast (ICD-10-PCS; 2020-08-01)
PROC: 04V43DZ Restriction of Splenic Artery with Intraluminal Device, Percutaneous Approach (ICD-10-PCS; 2020-08-01)
DX: S36.09XA Other injury of spleen, initial encounter (principal); R57.8 Other shock; F12.90 Cannabis use, unspecified, uncomplicated; Z20.822 Contact with and (suspected) exposure to COVID-19; I95.9 Hypotension, unspecified; X58.XXXA Exposure to other specified factors, initial encounter; Y93.89 Activity, other specified; Y92.89 Other specified places as the place of occurrence of the external cause; Y99.8 Other external cause status; K66.1 Hemoperitoneum
CPT/HCPCS: 36415; 36430; 37244; 71045; 74177; 76937; 80053; 83605; 83735; 84100; 84145; 85025; 85027; 86885; 86900; 86901; 86920; 87040; 87081; 87635; 93005; 96365; 96375; 99152; 99153; 99285; C1769; C1894; C9803; G0378; J1644; J2250; J2270; J2405; J2543; J3010; J7030; P9016; Q9967

== ENCOUNTER → 2020-09-06 | Emergency (ER) | payer MEDICAID | END | disposition left against medical advice (07) | LOC: ER 11:37 | DX: Z00.8 Encounter for other general examination (principal); Z53.21 Procedure and treatment not carried out due to patient leaving prior to being seen by health care provider ==